=== PATIENT | female | born 1990 | race Caucasian/White ===

== ENCOUNTER 2017-09-20 12:46 | Emergency (ER) | payer SELFPAY ==
[~2017-09-20] VITALS: Ht 157.5 cm; Wt 65.9 kg
[~2017-09-20 12:46] MED LIST: DOXYCYCLINE 10100 MG PO; NO HOME MEDICATIONS
[2017-09-20 12:50] VITALS: TEMP 98.6
[2017-09-20] MEDS ORDERED: ASPIRIN 32325 MG/TAB PO (13:07)
[2017-09-20 13:41] LABS: COLLECTION METHOD CLEAN CATCH
[2017-09-20 13:49] LABS: MUCOUS Present /lpf; PH 6 (5-8); URINE APPEARANCE Clear; URINE BACTERIA Rare /hpf; URINE BILIRUBIN Negative (NEGATIVE); URINE BLOOD Negative (NEGATIVE); URINE COLOR Yellow; URINE GLUCOSE Negative (NEGATIVE); URINE KETONE Negative (NEGATIVE); URINE LEUKOCYTE ESTERASE Negative (NEGATIVE); URINE NITRATE Negative (NEGATIVE); URINE PROTEIN(semi-quant) Negative (NEGATIVE); URINE RBC 0-2 /hpf; URINE UROBILINOGEN Negative (NEGATIVE)
[2017-09-20] MEDS ORDERED: FIORICET 325 MG1 TA1 PO (14:17)
[2017-09-20] MEDS ORDERED: MACROBID 1100 MG/CAP PO (14:20)
[2017-09-20 14:39] VITALS: BP 131/99; PULSE 74
== END 2017-09-20 14:40 | disposition home or self-care (01) ==
LOC: COL.ER 12:46
PROVIDERS: Physician Assistant
DX: S06.0X0A Concussion without loss of consciousness, initial encounter (principal); G43.909 Migraine, unspecified, not intractable, without status migrainosus; N39.0 Urinary tract infection, site not specified; Z79.82 Long term (current) use of aspirin; W22.8XXA Striking against or struck by other objects, initial encounter